=== PATIENT | female | born 1985 | race Caucasian/White ===

== ENCOUNTER 2017-09-08 12:03 | Emergency (ER) | payer SELFPAY ==
[2017-09-08] MEDS ORDERED: fentaNYL 100 MCG/2 ML INJ IVP ONE (12:32)
[2017-09-08] MEDS ORDERED: ONDANSETRON DISINTEGRATING 4 MG TAB PO ONE (12:32)
--- NOTE | 2017-09-08 12:37 | EDPHY ---
H & P Stated Complaint: Intermittent rt flank pain since last Friday. c/o nausea with pain Time Seen by Provider: 09/08/17 12:09 HPI/ROS: Chief Complaint: Right flank pain HPI: 32-year-old woman presenting with intermittent right flank pain for the last week and half. Pain is described as waxing waning, at time severe right flank. It hurts to move around. It is improved with ice. The no urinary urgency or frequency. Last menstrual. Was about 2 weeks ago and normal. Does not believe she is . Has never been . No vaginal bleeding or discharge. No urinary urgency or frequency. No diarrhea or constipation. He has had some nausea and vomited several times today secondary to the pain. Currently pain is about an 8/10. No heavy lifting or injuries. ROS: 10 point Review of Systems is negative except as noted in the HPI. PMH: Denies Social History: No smoking, no alcohol, occasional marijuana Family History: non-contributory Physical Exam: Gen: Awake, Alert, No Distress HEENT: Nose: no rhinorrhea Eyes: PERRLA, EOMI Mouth: Moist mucosa Neck: Supple, no JVD Chest: nontender, lungs clear to auscultation Heart: S1, S2 normal, no murmur Abd: Soft, moderate tenderness no right upper quadrant, no lower abdominal or adnexal tenderness, no guarding Back: no CVA tenderness, no midline tenderness moderate right paraspinal tenderness with palpable muscle spasm in the right paraspinal muscles Ext: no edema, non-tender Skin: no rash Neuro: CN II-XII intact, Sensation grossly intact, Strength 5/5 in bilateral upper and lower extremities - Personal History LMP (Females 10-55): 8-14 Days Ago Current Tetanus Diphtheria and Acellular Pertussis (TDAP): Unsure - Medical/Surgical History Hx Asthma: No Hx Chronic Respiratory Disease: No Hx Diabetes: No Hx Cardiac Disease: No Hx Renal Disease: No Hx Cirrhosis: No Hx Alcoholism: No Hx HIV/AIDS: No Hx Splenectomy or Spleen Trauma: No Other PMH: Med hx-none. Surg-none - Social History Smoking Status: Unknown if ever smoked Constitutional: Initial Vital Signs Temperature (C) 36.6 C 09/08/17 12:07 Heart Rate 51 L 09/08/17 12:07 Respiratory Rate 16 09/08/17 12:07 Blood Pressure 135/80 H 09/08/17 12:07 O2 Sat (%) 99 09/08/17 12:07 O2 Delivery Mode Room Air Allergies/Adverse Reactions: Penicillins Allergy (Severe, Verified 09/08/17 12:07) Anaphylaxis Home Medications: Medication Instructions Recorded Ondansetron Odt [Zofran Odt 4 mg 4 mg PO Q4 PRN #10 tab 09/08/17 (*)] Medical Decision Making - Diagnostics Imaging Results: Imaging Impressions Abdomen Ultrasound 09/08/17 12:32 Impression: 1. Mild bilateral hydronephrosis. 2. No cholelithiasis or biliary ductal dilation. 3. No hepatosplenomegaly or ascites. Findings and recommendations discussed with Emergency Department physician, Darvin Flores MD at 13:24 hour, 09/08/2017. Final report concurs with initial preliminary interpretation. Imaging: Discussed imaging studies w/ financial institution branch manager Radiologist ED Course/Re-evaluation: Patient is improved after fentanyl and Zofran 0 DT in fluids. Is complaining of some mild nausea and some mouth pain. She has been given Toradol and a Lidoderm patch with an additional L fluid is improved. Laboratory evaluations are unremarkable. Ultrasound of the kidneys and gallbladder shows mild hydro otherwise negative. Findings are nonspecific. She does have some mild hematuria. She has reproducible musculoskeletal pain at think this is musculoskeletal in nature. No evidence of acute bianca cystitis, pyelonephritis , kidney stone, cystitis, appendicitis or other infectious intra abdominal process. Will discharge with follow-up with primary care continuing anti- inflammatories, return for worsening. - Data Points Laboratory Results: 09/08/17 12:45 POC Sodium 144 mEq/L mEq/L (135-145) POC Potassium 3.6 mEq/L mEq/L (3.3-5.0) POC Chloride 104.0 mEq/L mEq/L (97-110) POC Total CO2 24 mEq/L mEq/L (22-31) POC BUN 8 mg/dL mg/dL (7-23) POC Creatinine 0.9 mg/dL mg/dL (0.6-1.0) POC Glucose 100 mg/dL mg/dL (70-100) POC Calcium 9.5 mg/dL mg/dL (8.5-10.4) POC Total Bilirubin 0.9 mg/dL mg/dL (0.1-1.4) POC AST 22 IU/L IU/L (14-46) POC ALT 19 IU/L IU/L (9-52) POC Alk Phosphatase 39 IU/L IU/L (38-126) POC Total Protein 7.2 g/dL g/dL (6.3-8.2) POC Albumin 4.0 g/dL g/dL (3.5-5.0) Medications Given: Discontinued Medications Fentanyl (Sublimaze) 50 mcg IVP EDNOW ONE Stop: 09/08/17 12:33 Last Admin: 09/08/17 12:46 Dose: 50 mcg Sodium Chloride (Ns) 1,000 mls @ 0 mls/hr IV ONCE ONE PRN Reason: Wide Open Stop: 09/08/17 12:45 Last Admin: 09/08/17 12:45 Dose: 1,000 mls Sodium Chloride (Ns) 1,000 mls @ 0 mls/hr IV ONCE ONE; Wide Open PRN Reason: Protocol Stop: 09/08/17 13:30 Last Admin: 09/08/17 13:38 Dose: 1,000 mls Ketorolac Tromethamine (Toradol) 15 mg IVP EDNOW ONE Stop: 09/08/17 13:30 Last Admin: 09/08/17 13:40 Dose: 15 mg Metoclopramide HCl (Reglan Injection) 10 mg IVP EDNOW ONE Stop: 09/08/17 13:21 Last Admin: 09/08/17 13:31 Dose: Not Given Miscellaneous Medication (Icy Hot Lidocaine/Menthol 4%/1% Patch) 1 patch TD EDNOW ONE Stop: 09/08/17 13:30 Last Admin: 09/08/17 13:38 Dose: 1 patch Ondansetron HCl (Zofran Odt) 4 mg PO EDNOW ONE Stop: 09/08/17 12:33 Last Admin: 09/08/17 12:41 Dose: 4 mg Point of Care Test Results: CBC CBC Collection Date 09/08/17 CBC Collection Time 12:52 WBC 12.4 RBC 4.85 HGB 14.7 HCT 44.7 PLT 325 Neut # 10.6 Neut 85.6 LYMPH # 0.9 LYMPH 7.5 Other WBC # 0.9 Other WBC 6.9 MCV 92.2 Chemistry 09/08/17 12:45 POC Sodium 144 mEq/L mEq/L (135-145) POC Potassium 3.6 mEq/L mEq/L (3.3-5.0) POC Chloride 104.0 mEq/L mEq/L (97-110) POC Total CO2 24 mEq/L mEq/L (22-31) POC BUN 8 mg/dL mg/dL (7-23) POC Creatinine 0.9 mg/dL mg/dL (0.6-1.0) POC Glucose 100 mg/dL mg/dL (70-100) POC Calcium 9.5 mg/dL mg/dL (8.5-10.4) POC Total Bilirubin 0.9 mg/dL mg/dL (0.1-1.4) POC AST 22 IU/L IU/L (14-46) POC ALT 19 IU/L IU/L (9-52) POC Alk Phosphatase 39 IU/L IU/L (38-126) POC Total Protein 7.2 g/dL g/dL (6.3-8.2) POC Albumin 4.0 g/dL g/dL (3.5-5.0) Urine Collection Date 09/08/17 Collection Time 12:16 HCG Results Negative Urine Dip Collection Date 09/08/17 Collection Time 12:16 Specific [place] (1.002-1.030) 1.025 PH (5.0-7.5) 6.5 Leukocytes (Negative) Negative Nitrites (Negative) Negative Protein (Negative) 2+ Glucose (Negative) Negative Ketones (Negative) 2+ Urobilnogen (0.2-1.0 EU) 0.2 Bilirubin (Negative) Test Not Performed Blood (Negative) 3+ Departure - Departure Disposition: Home, Routine, Self-Care Clinical Impression: Back pain Condition: Good Instructions: Flank Pain (ED), Back Pain (ED), Lower Back Exercises (ED) Additional Instructions: Take ibuprofen, 600 mg, 3 times a day. You may also take acetaminophen, 1000 mg every 6 hours. You may replace a Lidoderm patch every 24 hr, these are available over-the- counter. Apply ice for 15 minutes of every hour while awake. Make sure to remain active. Did do not lay in bed or sit in a chair for long periods. Avoid heavy lifting or bending at work until cleared by your physician. Please see the attached back exercise instructions. Follow up with your primary care physician in 2-3 days for further evaluation. Referrals: Trisha Chacon MD [Medical Doctor] - As per Instructions Prescriptions: Ondansetron Odt [Zofran Odt 4 mg (*)] 4 mg PO Q4 PRN #10 tab PRN Reason: nausea
[2017-09-08] MEDS ORDERED: NS 1,000 ML IV ONE ×2 (12:44→13:29)
[2017-09-08] MEDS ORDERED: METOCLOPRAMIDE 10 MG/2 ML VIAL IVP ONE (13:20)
[2017-09-08] MEDS ORDERED: KETOROLAC 15 MG/1 ML SDV IVP ONE (13:29)
[2017-09-08] MEDS ORDERED: LIDOCAINE 4%/MENTHOL 1% PATCH TD ONE (13:29)
[2017-09-08 14:29] VITALS: BP 103/67
[2017-09-08] MEDS ORDERED: PATCH REMOVAL 1 EA PATCH TD SCH (21:00)
== END 2017-09-08 14:25 | disposition home or self-care (01) ==
LOC: CED 12:03
DX: M54.9 Dorsalgia, unspecified (principal); E86.9 Volume depletion, unspecified
CPT/HCPCS: 76700-PO; 80053-PO; 96374; J1885; J2765; J3010